=== PATIENT | female | born 1995 | race Caucasian/White ===

== ENCOUNTER 2021-04-09 03:23 | Inpatient (IN) | payer MEDICAID ==
[2021-04-09] MEDS ORDERED: Penicillin G Potassium 5 MILLUNITS in Sodium Chloride 0.9% 50 ML IV ONE (03:41)
[2021-04-09] MEDS ORDERED: Carboprost Tromethamine 250 MCG/1 ML Amp ONE (03:42)
[2021-04-09] MEDS ORDERED: Misoprostol 200 MCG Tab ONE (03:42)
[2021-04-09] MEDS ORDERED: Methylergonovine 0.2 MG/1 ML Amp ONE ×2 (03:42→06:33)
[2021-04-09] MEDS ORDERED: Glycopyrrolate 0.2 MG/ML 5 ML MDV ONE (04:19)
[2021-04-09] MEDS ORDERED: Propofol 200 MG/20 ML SDV ONE (04:19)
[2021-04-09] MEDS ORDERED: Dexamethasone 4 MG/ML SDV ONE (04:19)
[2021-04-09] MEDS ORDERED: Rocuronium 50 MG/5 ML Vial ONE (04:19)
[2021-04-09] MEDS ORDERED: Neostigmine Methylsulfate 1 MG/ML 5 ML Syringe ONE (04:19)
[2021-04-09] MEDS ORDERED: Succinylcholine 200 MG/10 ML MDV ONE (04:19)
[2021-04-09] MEDS ORDERED: Ondansetron 4 MG/2 ML SDV ONE (04:19)
[2021-04-09] MEDS ORDERED: Oxytocin 10 Units/1 ML SDV ONE (04:20)
[2021-04-09] MEDS ORDERED: fentaNYL 250 MCG/5 ML SDV ONE (04:20)
[2021-04-09] MEDS ORDERED: Midazolam 1 MG/ML 2 ML SDV ONE (04:36)
[2021-04-09] MEDS ORDERED: fentaNYL 100 MCG/2 ML SDV ONE ×2 (04:42→05:13)
[2021-04-09] MEDS ORDERED: Bupivacaine 0.5% 50 ML MDV ONE (05:05)
[2021-04-09] MEDS ORDERED: Lidocaine 1% with EPINEPHrine 1:100,000 50 ML MDV ONE (05:06)
[2021-04-09] MEDS ORDERED: hydrOXYzine HCL 100 MG/2 ML SDV IM ONE (05:11)
[2021-04-09] MEDS ORDERED: hydrOXYzine HCL 100 MG/2 ML SDV ONE (05:15)
[2021-04-09] MEDS ORDERED: diphenhydrAMINE 50 MG/ML SDV IVPUSH PRN (05:16)
[2021-04-09] MEDS ORDERED: fentaNYL 100 MCG/2 ML SDV IVPUSH PRN (05:16)
[2021-04-09] MEDS ORDERED: Ondansetron 4 MG Tab.DIS PO PRN (05:16)
[2021-04-09] MEDS ORDERED: Benzocaine 20% Top Spray 56 GM Bottle TOP ONE (05:16)
[2021-04-09] MEDS ORDERED: ePHEDrine 50 MG/ML SDV IVPUSH PRN (05:16)
[2021-04-09] MEDS ORDERED: Witch Hazel Medicated Pads 100/Jar TOP ONE (05:16)
[2021-04-09] MEDS ORDERED: Simethicone 80 MG Tab.Chew PO PRN (05:16)
[2021-04-09] MEDS ORDERED: Bisacodyl 10 MG Supp RECTAL PRN (05:16)
[2021-04-09] MEDS ORDERED: Lanolin 100% Cream 40 GM Tube TOP ONE (05:16)
[2021-04-09] MEDS ORDERED: Naloxone 0.4 MG/ML SDV IVPUSH PRN (05:16)
[2021-04-09] MEDS ORDERED: Sodium Chloride 0.9% 10 ML Syringe FLUSH PRN (05:17)
--- NOTE | 2021-04-09 05:27 | CRLCR ---
For Patients: As a result of the Cures Act, medical imaging exams and procedure reports are released immediately into your electronic medical record. You may view this report before your referring provider. If you have questions, please contact your health care provider. HISTORY: Instrument count. Emergency Caesarean section. COMPARISON: None available. FINDINGS: A single AP portable supine view of the abdomen was obtained at 0505 hours. There is no sign of any radiopaque foreign body in the abdomen or pelvis to suggest a retained surgical instrument or item. The bowel gas pattern is unremarkable with nothing seen to suggest obstruction or ileus. There is no sign of dilatation of the small bowel or colon. There is no free air. Soft tissue planes are preserved and there is no sign of a mass. No calcifications of concern are identified. The osseous structures are normal in appearance for the patient`s age. The lung bases are not included on today`s study. IMPRESSION: No sign of any retained surgical instrument or item. No sign bowel obstruction or ileus. Dictated by Dominic Piña MD @ 04/09/2021 5:26:56 AM (Electronically Signed)
[2021-04-09] MEDS ORDERED: Methylergonovine 0.2 MG/1 ML Amp IM ONE (05:52)
[2021-04-09] MEDS: Ibuprofen 800 MG Tab PO PRN ×2 (06:36→14:48)
--- NOTE | 2021-04-09 07:46 | OR ---
DATE OF PROCEDURE: 04/09/2021 SURGEON: Abdi Yoder MD PROCEDURE: section with aftercare. PREOPERATIVE DIAGNOSIS: Failure to advance with vaginal delivery. POSTOPERATIVE DIAGNOSIS: Failure to advance with vaginal delivery. PIPE FITTER MARINE: Gosia Jacobson CNM. COMPLICATION: None. ANESTHETIC: General. RISKS: Risks, benefits, alternatives, and limitations including, but not limited to infection; bleeding; injury to baby, bladder, bowel loops; chronic wounds; chronic pain; and other chronic issues were all explained to the patient, and she wished to proceed. PROCEDURE IN DETAIL: The patient was placed in supine position. Due to this being a stat procedure, the patient was rapidly prepped and draped, although consent was obtained prior to general anesthetic. A Pfannenstiel-type incision was performed. This was carried down rapidly with electrocautery to and through the external oblique. Metzenbaum scissors was carefully used to open the abdomen. No evidence of enterotomy or injury was noted. A rectus-sparing maneuver was then used. The bladder was identified and was deflected inferiorly and protected with a bladder blade. The uterus was then opened bluntly. The baby was delivered with mild difficulty. The cord was clamped and cut. The uterus was delivered extracorporeally. The placenta was delivered without difficulty. No evidence of retained placental products was noted. The uterus was then closed in three layers with #1 Vicryl suture in a running locked fashion. Irrigation was used to remove clots from the abdomen. The rectus sheath was then closed with #1 Vicryl in an interrupted running fashion. The external oblique aponeurosis was then closed with #1 Vicryl in a running suture x2. Subcutaneous tissues were irrigated and closed with 3-0 Vicryl and 0 Vicryl. was closed with 4-0 Vicryl and Dermabond was applied. Of note, local anesthetic was also used at the end of the procedure. Also of note, abdominal x-rays were performed and sent to Radiology for evaluation of retained surgical devices and materials. The patient tolerated the procedure well. Abdi Yoder MD /[id number]
[2021-04-09] MEDS: Prenatal Multivitamin with Calcium/Folic Acid/Iron Tab PO SCH (10:32)
[2021-04-09] MEDS: NS + KCl 20mEq/L 1,000 ML IV SCH ×2 (11:21→21:11)
[2021-04-09] MEDS: Acetaminophen/oxyCODONE 325-5 MG Tab PO PRN (11:22)
--- NOTE | 2021-04-09 16:19 | PCM.LDHP ---
L&D History of Present Illness - General Date of Service: 04/09/21 Admit Problem/Dx: Patient Status Order with Admit Dx/Problem 04/09/21 05:16 Patient Status [ADT] Routine 04/09/21 05:18 Patient Status [ADT] Routine Admission Diagnosis/Problem Admission Diagnosis/Problem - History of Present Illness Pain Score: 7 - Related Data Allergies/Adverse Reactions: Allergies Allergy/AdvReac Type Severity Reaction Status Date / Time No Known Allergies Allergy Verified 04/09/21 08:18 Past Medical History - Past Health History Medical/Surgical History: Denies Medical/Surgical History Social & Family History - Family History Family Medical History: Unobtainable - Tobacco Use Tobacco Use Status *Q: Current Every Day Tobacco User Years of Tobacco use: 5 Packs/Tins Daily: 0.5 - Caffeine Use Caffeine Use: Reports: None - Recreational Drug Use Recreational Drug Use: No Other Recreational Drug Type: patient denied, see UDS H&P Review of Systems - Review of Systems: Review Of Systems: See Below General: Reports: No Symptoms HEENT: Reports: No Symptoms Pulmonary: Reports: No Symptoms Cardiovascular: Reports: No Symptoms Gastrointestinal: Reports: No Symptoms Genitourinary: Reports: No Symptoms Musculoskeletal: Reports: No Symptoms Skin: Reports: No Symptoms Psychiatric: Reports: No Symptoms Neurological: Reports: No Symptoms Hematologic/Lymphatic: Reports: No Symptoms Immunologic: Reports: No Symptoms L&D Exam - Exam Exam: See Below - Vital Signs Vital Signs: Last Vital Signs Temp 36.8 C 04/09/21 14:40 Pulse 84 04/09/21 14:40 Resp 18 04/09/21 14:40 BP 123/69 04/09/21 14:40 Pulse Ox 96 04/09/21 14:40 - OB Specific Contraction Duration (sec): 40-60 Contraction Frequency (min): 2-3 Contraction Intensity: Strong Movement: Active Heart Tones: Present Heart Rate (FHR) Variability: Moderate (6-25 bpm) Presentation: Vertex - Bear Score Bear Score Cervix Position: Anterior Bear Score Consistency: Soft Bear Score Effacement: >80% Bear Score Dilation: > 5 cm Bear Score 's Station: +1, +2 Bear Score Total: 13 - Exam General: Alert, Oriented HEENT: PERRLA, Conjunctiva Clear, EACs Clear, EOMI, Hearing Intact, Mucosa Moist & [place], Nares Patent, Normal Nasal Septum, Posterior Pharynx Clear, TMs Clear Neck: Supple, Trachea Midline Lungs: Clear to Auscultation, Normal Respiratory Effort Cardiovascular: Regular Rate, Regular Rhythm GI/Abdominal Exam: Normal Bowel Sounds, Soft, Non-Tender, No Organomegaly, No Distention, No Abnormal Bruit, No Mass, Pelvis Stable Rectal Exam: Normal Exam, Normal Rectal Tone Genitourinary: Normal external exam, Normal bimanual exam Back Exam: Normal Inspection, Full Range of Motion Extremities: Normal Inspection, Normal Range of Motion, Non-Tender, No Pedal Edema, Normal Capillary Refill Skin: Warm, Dry, Intact Neurological: Cranial Nerves Intact, Reflexes Equal Bilateral Psychiatric: Alert, Normal Affect, Normal Mood - Patient Data Lab Results Last 24 hrs: Laboratory Results - last 24 hr 04/09/21 04/09/21 04/09/21 Range/Units 03:41 03:41 03:41 WBC 15.5 H (4.5-11.0) K/uL RBC 3.99 (3.30-5.50) M/uL Hgb 11.2 L (12.0-15.0) g/dL Hct 33.9 L (36.0-48.0) % MCV 85 (80-98) fL MCH 28 (27-31) pg MCHC 33 (32-36) % Plt Count 441 H (150-400) K/uL Neut % (Auto) 78.5 H (36-66) % Lymph % (Auto) 14.0 L (24-44) % [place] % (Auto) 6.7 H (2-6) % Eos % (Auto) 0.4 L (2-4) % Baso % (Auto) 0.4 (0-1) % Sodium 135 L (140-148) mmol/L Potassium 3.3 L (3.6-5.2) mmol/L Chloride 101 (100-108) mmol/L Carbon Dioxide 24 (21-32) mmol/L Anion Gap 13.3 (5.0-14.0) mmol/L BUN 6 L (7-18) mg/dL Creatinine 0.5 L (0.6-1.0) mg/dL Est Cr Clr Drug Dosing TNP Estimated GFR (MDRD) > 60 (>60) Glucose 168 H (74-106) mg/dL Calcium 8.5 (8.5-10.1) mg/dL Total Bilirubin 0.1 L (0.2-1.0) mg/dL AST 11 L (15-37) U/L ALT 10 L (12-78) U/L Alkaline Phosphatase 111 (46-116) U/L Total Protein 6.0 L (6.4-8.2) g/dL Albumin 1.7 L (3.4-5.0) g/dL Globulin 4.3 H (2.3-3.5) g/dL Albumin/Globulin Ratio 0.4 L (1.2-2.2) Urine Color (YELLOW) Urine Appearance (CLEAR) Urine pH (5.0-8.0) Ur Specific [place] (1.008-1.030) Urine Protein (NEGATIVE) mg/dL Urine Glucose (UA) (NEGATIVE) mg/dL Urine Ketones (NEGATIVE) mg/dL Urine Occult Blood (NEGATIVE) Urine Nitrite (NEGATIVE) Urine Bilirubin (NEGATIVE) Urine Urobilinogen (0.2-1.0) EU/dL Ur Leukocyte Esterase (NEGATIVE) Urine RBC (0-5) Urine WBC (0-5) Ur Epithelial Cells Amorphous Sediment Urine Bacteria Urine Mucus Urine Opiates Screen (NEGATIVE) Ur Oxycodone Screen (NEGATIVE) Urine Methadone Screen (NEGATIVE) Ur Propoxyphene Screen (NEGATIVE) Ur Barbiturates Screen (NEGATIVE) Ur Tricyclics Screen (NEGATIVE) Ur Phencyclidine Scrn (NEGATIVE) Ur Amphetamine Screen (NEGATIVE) U Methamphetamines Scrn (NEGATIVE) Urine MDMA Screen (NEGATIVE) U Benzodiazepines Scrn (NEGATIVE) U Cocaine Metab Screen (NEGATIVE) U Marijuana (THC) Screen (NEGATIVE) HIV-1 Ab Rapid Screen (NON-REACT.) SARS CoV-2 RNA Rapid CHECO Blood Type A POSITIVE Gel Antibody Screen Negative 04/09/21 04/09/21 04/09/21 Range/Units 03:49 04:41 04:41 WBC (4.5-11.0) K/uL RBC (3.30-5.50) M/uL Hgb (12.0-15.0) g/dL Hct (36.0-48.0) % MCV (80-98) fL MCH (27-31) pg MCHC (32-36) % Plt Count (150-400) K/uL Neut % (Auto) (36-66) % Lymph % (Auto) (24-44) % [place] % (Auto) (2-6) % Eos % (Auto) (2-4) % Baso % (Auto) (0-1) % Sodium (140-148) mmol/L Potassium (3.6-5.2) mmol/L Chloride (100-108) mmol/L Carbon Dioxide (21-32) mmol/L Anion Gap (5.0-14.0) mmol/L BUN (7-18) mg/dL Creatinine (0.6-1.0) mg/dL Est Cr Clr Drug Dosing Estimated GFR (MDRD) (>60) Glucose (74-106) mg/dL Calcium (8.5-10.1) mg/dL Total Bilirubin (0.2-1.0) mg/dL AST (15-37) U/L ALT (12-78) U/L Alkaline Phosphatase (46-116) U/L Total Protein (6.4-8.2) g/dL Albumin (3.4-5.0) g/dL Globulin (2.3-3.5) g/dL Albumin/Globulin Ratio (1.2-2.2) Urine Color Yellow (YELLOW) Urine Appearance Slightly cloudy A (CLEAR) Urine pH 6.0 (5.0-8.0) Ur Specific [place] 1.025 (1.008-1.030) Urine Protein Negative (NEGATIVE) mg/dL Urine Glucose (UA) 100 H (NEGATIVE) mg/dL Urine Ketones Negative (NEGATIVE) mg/dL Urine Occult Blood Trace-intact H (NEGATIVE) Urine Nitrite Negative (NEGATIVE) Urine Bilirubin Negative (NEGATIVE) Urine Urobilinogen 1.0 (0.2-1.0) EU/dL Ur Leukocyte Esterase Trace H (NEGATIVE) Urine RBC 5-10 H (0-5) Urine WBC 10-20 H (0-5) Ur Epithelial Cells Moderate Amorphous Sediment Not seen Urine Bacteria Few Urine Mucus Moderate Urine Opiates Screen Negative (NEGATIVE) Ur Oxycodone Screen Negative (NEGATIVE) Urine Methadone Screen Negative (NEGATIVE) Ur Propoxyphene Screen Negative (NEGATIVE) Ur Barbiturates Screen Negative (NEGATIVE) Ur Tricyclics Screen Negative (NEGATIVE) Ur Phencyclidine Scrn Negative (NEGATIVE) Ur Amphetamine Screen Presumptive positive H (NEGATIVE) U Methamphetamines Scrn Presumptive positive H (NEGATIVE) Urine MDMA Screen Negative (NEGATIVE) U Benzodiazepines Scrn Negative (NEGATIVE) U Cocaine Metab Screen Negative (NEGATIVE) U Marijuana (THC) Screen Negative (NEGATIVE) HIV-1 Ab Rapid Screen (NON-REACT.) SARS CoV-2 RNA Rapid CHECO Negative Blood Type Gel Antibody Screen 04/09/21 Range/Units 10:11 WBC (4.5-11.0) K/uL RBC (3.30-5.50) M/uL Hgb (12.0-15.0) g/dL Hct (36.0-48.0) % MCV (80-98) fL MCH (27-31) pg MCHC (32-36) % Plt Count (150-400) K/uL Neut % (Auto) (36-66) % Lymph % (Auto) (24-44) % [place] % (Auto) (2-6) % Eos % (Auto) (2-4) % Baso % (Auto) (0-1) % Sodium (140-148) mmol/L Potassium (3.6-5.2) mmol/L Chloride (100-108) mmol/L Carbon Dioxide (21-32) mmol/L Anion Gap (5.0-14.0) mmol/L BUN (7-18) mg/dL Creatinine (0.6-1.0) mg/dL Est Cr Clr Drug Dosing Estimated GFR (MDRD) (>60) Glucose (74-106) mg/dL Calcium (8.5-10.1) mg/dL Total Bilirubin (0.2-1.0) mg/dL AST (15-37) U/L ALT (12-78) U/L Alkaline Phosphatase (46-116) U/L Total Protein (6.4-8.2) g/dL Albumin (3.4-5.0) g/dL Globulin (2.3-3.5) g/dL Albumin/Globulin Ratio (1.2-2.2) Urine Color (YELLOW) Urine Appearance (CLEAR) Urine pH (5.0-8.0) Ur Specific [place] (1.008-1.030) Urine Protein (NEGATIVE) mg/dL Urine Glucose (UA) (NEGATIVE) mg/dL Urine Ketones (NEGATIVE) mg/dL Urine Occult Blood (NEGATIVE) Urine Nitrite (NEGATIVE) Urine Bilirubin (NEGATIVE) Urine Urobilinogen (0.2-1.0) EU/dL Ur Leukocyte Esterase (NEGATIVE) Urine RBC (0-5) Urine WBC (0-5) Ur Epithelial Cells Amorphous Sediment Urine Bacteria Urine Mucus Urine Opiates Screen (NEGATIVE) Ur Oxycodone Screen (NEGATIVE) Urine Methadone Screen (NEGATIVE) Ur Propoxyphene Screen (NEGATIVE) Ur Barbiturates Screen (NEGATIVE) Ur Tricyclics Screen (NEGATIVE) Ur Phencyclidine Scrn (NEGATIVE) Ur Amphetamine Screen (NEGATIVE) U Methamphetamines Scrn (NEGATIVE) Urine MDMA Screen (NEGATIVE) U Benzodiazepines Scrn (NEGATIVE) U Cocaine Metab Screen (NEGATIVE) U Marijuana (THC) Screen (NEGATIVE) HIV-1 Ab Rapid Screen Non-reactive (NON-REACT.) SARS CoV-2 RNA Rapid CHECO Blood Type Gel Antibody Screen Result Diagrams: 04/09/21 03:41 04/09/21 03:41 - Problem List (1) SNOMED Code(s): 09544134 ICD Code: Z34.90 - ENCNTR FOR SUPRVSN OF NORMAL , UNSP, UNSP TRIMESTER Status: Acute Current Visit: Yes Qualifiers: Weeks of gestation: unspecified Qualified Code(s): Z34.90 - Encounter for supervision of normal , unspecified, unspecified trimester (2) Insufficient care in third trimester SNOMED Code(s): 8293242873127, 1269489064729 ICD Code: O09.33 - SUPRVSN OF PREG W INSUFFICIENT ANTENAT CARE, THIRD TRIMESTER Status: Acute Current Visit: Yes (3) Drug abuse during SNOMED Code(s): 55181963 ICD Code: O99.320 - DRUG USE COMPLICATING , UNSPECIFIED TRIMESTER; F19.10 - OTHER PSYCHOACTIVE SUBSTANCE ABUSE, UNCOMPLICATED Status: Acute Current Visit: Yes (4) Tobacco abuse SNOMED Code(s): 412939299 ICD Code: Z72.0 - TOBACCO USE Status: Acute Current Visit: Yes (5) Labor established SNOMED Code(s): 77626983 ICD Code: TXX9882 - Status: Acute Current Visit: Yes (6) Prolonged artificial rupture of membranes SNOMED Code(s): 929006634, 608522908 ICD Code: O75.5 - DELAYED DELIVERY AFTER ARTIFICIAL RUPTURE OF MEMBRANES Status: Acute Current Visit: Yes (7) Noncompliance SNOMED Code(s): 0816752 ICD Code: Z91.19 - PATIENT'S NONCOMPLIANCE W OTH MEDICAL TREATMENT AND REGIMEN Status: Acute Current Visit: Yes Problem List Initiated/Reviewed/Updated: Yes Orders Last 24hrs: Active Orders 24 hr Category Date Time Status Patient Status [ADT] Routine ADT 04/09/21 05:16 Active Patient Status [ADT] Routine ADT 04/09/21 05:18 Active Ambulate [RC] ASDIRECTED Care 04/09/21 05:16 Active Antiembolic Devices [RC] .Routine Care 04/09/21 05:17 Active Communication Order [RC] ASDIRECTED Care 04/09/21 05:18 Active Communication Order [RC] Per Unit Routine Care 04/09/21 05:16 Active Communication Order [RC] Per Unit Routine Care 04/09/21 05:16 Active Communication Order [RC] Per Unit Routine Care 04/09/21 05:16 Active Head of Bed Elevation [RC] CONTINUOUS Care 04/09/21 05:16 Active Notify Provider Vital Signs [RC] PRN Care 04/09/21 05:17 Active Notify Provider [RC] PRN Care 04/09/21 05:18 Active Pneumonia Education [RC] UPON Care 04/09/21 05:16 Active Turn, Cough, Deep Breathe [RC] Q1HWA Care 04/09/21 05:16 Active Up ad Jackie [RC] ASDIRECTED Care 04/09/21 05:17 Active Up to Chair [RC] TIDMEALS Care 04/09/21 05:16 Active Urinary Catheter Removal [RC] Per Unit Routine Care 04/09/21 05:16 Active VTE/DVT Education [RC] Click to Edit Care 04/09/21 05:17 Active Vital Signs [RC] PER UNIT ROUTINE Care 04/09/21 05:16 Active Consult to Case Management/Diet Therapist [CONS] Cons 04/09/21 05:17 Active Routine Consult to Cytogeneticist [CONS] Routine Cons 04/09/21 05:16 Active Respiratory Care Assess and Treatment [CONS] Routine Cons 04/09/21 05:16 Active Regular Diet [DIET] Diet 04/09/21 Lunch Active BASIC METABOLIC PANEL,BMP [CHEM] AM Lab 04/10/21 05:11 Ordered CBC WITH AUTO DIFF [HEME] AM Lab 04/10/21 05:11 Ordered HBSAG SCREEN Urgent Lab 04/09/21 10:11 Received HCV ANTIBODY Urgent Lab 04/09/21 10:11 Received PATIENT RETYPE [BBK] Routine Lab 04/09/21 03:41 Results RUBELLA ANTIBODIES, IGG Urgent Lab 04/09/21 10:11 Received T PALLIDUM SCREENING CASCADE Urgent Lab 04/09/21 10:11 Received TYPE AND SCREEN [BBK] Routine Lab 04/09/21 03:41 Results Acetaminophen/oxyCODONE [Percocet 325-5 MG] Med 04/09/21 05:16 Active 2 tab PO Q4H PRN Ibuprofen [Motrin] Med 04/09/21 05:16 Active 800 mg PO Q8H PRN NS + KCl 20mEq/L [Normal Saline with 20 mEq KCl] 1,000 Med 04/09/21 08:00 Ac tive ml IV ASDIRECTED Naloxone [Narcan] Med 04/09/21 05:16 Active 0.1 mg IVPUSH ASDIRECTED PRN Ondansetron [Zofran ODT] Med 04/09/21 05:16 Active 8 mg PO Q6H PRN Vit with Ca/FA/Iron [ Plus Iron] Med 04/09/21 09:00 Active 1 each PO DAILY Simethicone Med 04/09/21 05:16 Active 80 mg PO Q4H PRN Sodium Chloride 0.9% [Saline Flush] Med 04/09/21 05:17 Active 10 ml FLUSH ASDIRECTED PRN bisacodyL [Dulcolax] Med 04/09/21 05:16 Active 10 mg RECTAL BID PRN diphenhydrAMINE [Benadryl] Med 04/09/21 05:16 Active 25 mg IVPUSH Q6H PRN ePHEDrine [ePHEDrine sulfate] Med 04/09/21 05:16 Active 5 mg IVPUSH ASDIRECTED PRN fentaNYL [Sublimaze] Med 04/09/21 05:16 Active 10 mcg IVPUSH Q2H PRN Abdominal Binder [OM.PC] Per Unit Routine Oth 04/09/21 05:16 Ordered Breast Pump [WOMSER] Per Unit Routine Oth 04/09/21 05:16 Ordered DVT/VTE Prophylaxis Reflex [OM.PC] Routine Oth 04/09/21 05:16 Ordered Heat Therapy [OM.PC] Per Unit Routine Oth 04/09/21 05:16 Ordered Ice Therapy [OM.PC] Per Unit Routine Oth 04/09/21 05:16 Ordered Oral Care [OM.PC] BID Oth 04/09/21 05:30 Ordered Oral Care [OM.PC] BID Oth 04/10/21 05:30 Ordered Saline Lock Insert [OM.PC] Routine Oth 04/09/21 05:18 Ordered Resuscitation Status Routine Resus Stat 04/09/21 05:16 Ordered Medication Orders Bisacodyl (Bisacodyl 10 Mg Supp) 10 mg RECTAL BID PRN PRN Reason: Constipation Diphenhydramine HCl (Diphenhydramine 50 Mg/Ml Sdv) 25 mg IVPUSH Q6H PRN PRN Reason: Itching or Nausea Ephedrine Sulfate (Ephedrine 50 Mg/Ml Sdv) 5 mg IVPUSH ASDIRECTED PRN PRN Reason: Other Fentanyl (Fentanyl 100 Mcg/2 Ml Sdv) 10 mcg IVPUSH Q2H PRN PRN Reason: Pain (severe 7-10) Potassium Chloride/Sodium Chloride (Normal Saline With 20 Meq Kcl) 1,000 mls @ 100 mls/hr IV ASDIRECTED ROO[place]ELT Last Admin: 04/09/21 11:21 Dose: 100 mls/hr Documented by: FIDELINA Ibuprofen (Ibuprofen 800 Mg Tab) 800 mg PO Q8H PRN PRN Reason: mild pain or fever Last Admin: 04/09/21 14:48 Dose: 800 mg Documented by: Admin: 04/09/21 06:36 Dose: 800 mg Documented by: TESS Naloxone HCl (Naloxone 0.4 Mg/Ml Sdv) 0.1 mg IVPUSH ASDIRECTED PRN PRN Reason: Respiratory Depression Ondansetron HCl (Ondansetron 4 Mg Tab.Dis) 8 mg PO Q6H PRN PRN Reason: Nausea/Vomiting Oxycodone/Acetaminophen (Acetaminophen/Oxycodone 325-5 Mg Tab) 2 tab PO Q4H PRN PRN Reason: Pain (moderate 4-6) Last Admin: 04/09/21 11:22 Dose: 2 tab Documented by: FIDELINA Prenat Multivit/[place]/Iron/Folic Ac ( Multivitamin With Calcium/Folic Acid/Iron Tab) 1 each PO DAILY R[place]T Last Admin: 04/09/21 10:32 Dose: 1 each Documented by: FIDELINA Simethicone (Simethicone 80 Mg Tab.Chew) 80 mg PO Q4H PRN PRN Reason: Gas Sodium Chloride (Sodium Chloride 0.9% 10 Ml Syringe) 10 ml FLUSH ASDIRECTED PRN PRN Reason: Keep Vein Open Assessment/Plan Comment:: 04/09/2021 25 yo came via ambulance at a suspected 37 weeks gestation in active labor. Her significant other states that labor started at 0130 and got intense so they call an ambulance. On admission ER doctor thought that she was complete and plus two station. FHTs category one and patient very hard to get information from. Patient denied drug use, patient states they were here visiting when she went into labor they planned on delivering with a department mgr where they live. CNM arrived and found patient to have a very swollen anterior lip and gio roximately still 9cm. She was still trying to push. We educated her and attempted to put her in some positions to help with swelling of cervix. Patient was not compliant and refused to stay in positions. Then during discussion it then came to light that she had limited care, that they new the sex of the baby through ultrasounds. Then father of child stated she had been laboring at home and pushing for two hours before they called the ambulance. After trying multiple items decision was made to proceed with a stat primary section due to failure to progress. OR crew was notified. Patient agreed with plan of care. UDS was positive for methamphetamines. We brought patient down to OR on labor bed, FHTs remained a category one, mother then had general anesthesia. Infant was delivered quickly and placed on blanket, bulb suction done, fluid was clear, Infant began to attempt to cry, cord double clamped and cut, brought to warmer, still slightly affected by general anesthesia. dried, stimulated, warmed, delee deep suction done for return of 10ml of clear fluid, then CPAP done for 3 minutes then began to cry more vigorously, pink in color and have better tone. Mother had general anesthesia so was wrapped in prewarmed blanket, hat placed on head and brought up stairs for further evaluation. APGARS-5/9/9, weight-5lbs 9oz, le ngth-18 inches. When we brought up to nursery the father of was asleep in patients room and was hard to arouse. Once he was awakened he did come to nursery and was appropriate
[2021-04-10] MEDS: Ibuprofen 800 MG Tab PO PRN (04:46)
[2021-04-10] MEDS: Acetaminophen/oxyCODONE 325-5 MG Tab PO PRN (07:41)
[2021-04-10] MEDS: Prenatal Multivitamin with Calcium/Folic Acid/Iron Tab PO SCH ×2 (07:47→09:29)
[2021-04-10] MEDS ORDERED: Ondansetron 4 MG/2 ML SDV IVPUSH PRN (08:11)
[2021-04-10 08:13] LABS: HBSAG SCREEN Negative (Negative)
--- NOTE | 2021-04-10 09:15 | PCM.PNPP ---
- General Info Date of Service: 04/09/21 - Patient Data Vital Signs - Most Recent: Last Vital Signs Temp 36.8 C 04/10/21 07:36 Pulse 88 04/10/21 07:36 Resp 14 04/10/21 07:36 BP 125/80 04/10/21 07:36 Pulse Ox 97 04/10/21 07:36 I&O - Last 24 Hours: Intake & Output 04/09/21 04/10/21 04/10/21 22:59 06:59 14:59 Intake Total 3637 Output Total 175 1750 Balance -175 1887 Lab Results - Last 24 Hours: Laboratory Results - last 24 hr 04/09/21 04/09/21 04/10/21 Range/Units 10: 10: 04:45 WBC 17.5 H (4.5-11.0) K/uL RBC 3.38 (3.30-5.50) M/uL Hgb 9.4 L (12.0-15.0) g/dL Hct 29.1 L (36.0-48.0) % MCV 86 (80-98) fL MCH 28 (27-31) pg MCHC 32 (32-36) % Plt Count 476 H (150-400) K/uL Neut % (Auto) 77.5 H (36-66) % Lymph % (Auto) 15.0 L (24-44) % [place] % (Auto) 7.1 H (2-6) % Eos % (Auto) 0.3 L (2-4) % Baso % (Auto) 0.1 (0-1) % Sodium (140-148) mmol/L Potassium (3.6-5.2) mmol/L Chloride (100-108) mmol/L Carbon Dioxide (21-32) mmol/L Anion Gap (5.0-14.0) mmol/L BUN (7-18) mg/dL Creatinine (0.6-1.0) mg/dL Est Cr Clr Drug Dosing Estimated GFR (MDRD) (>60) Glucose (74-106) mg/dL Calcium (8.5-10.1) mg/dL Hep Bs Antigen Negative (Negative) HIV-1 Ab Rapid Screen Non-reactive (NON-REACT.) 04/10/21 Range/Units 04:45 WBC (4.5-11.0) K/uL RBC (3.30-5.50) M/uL Hgb (12.0-15.0) g/dL Hct (36.0-48.0) % MCV (80-98) fL MCH (27-31) pg MCHC (32-36) % Plt Count (150-400) K/uL Neut % (Auto) (36-66) % Lymph % (Auto) (24-44) % [place] % (Auto) (2-6) % Eos % (Auto) (2-4) % Baso % (Auto) (0-1) % Sodium 141 (140-148) mmol/L Potassium 4.2 (3.6-5.2) mmol/L Chloride 107 (100-108) mmol/L Carbon Dioxide 27 (21-32) mmol/L Anion Gap 7.3 (5.0-14.0) mmol/L BUN 4 L (7-18) mg/dL Creatinine 0.4 L (0.6-1.0) mg/dL Est Cr Clr Drug Dosing TNP Estimated GFR (MDRD) > 60 (>60) Glucose 71 L (74-106) mg/dL Calcium 7.9 L (8.5-10.1) mg/dL Hep Bs Antigen (Negative) HIV-1 Ab Rapid Screen (NON-REACT.) Med Orders - Current: Current Medications Bisacodyl (Bisacodyl 10 Mg Supp) 10 mg RECTAL BID PRN PRN Reason: Constipation Diphenhydramine HCl (Diphenhydramine 50 Mg/Ml Sdv) 25 mg IVPUSH Q6H PRN PRN Reason: Itching or Nausea Ephedrine Sulfate (Ephedrine 50 Mg/Ml Sdv) 5 mg IVPUSH ASDIRECTED PRN PRN Reason: Other Fentanyl (Fentanyl 100 Mcg/2 Ml Sdv) 10 mcg IVPUSH Q2H PRN PRN Reason: Pain (severe 7-10) Potassium Chloride/Sodium Chloride (Normal Saline With 20 Meq Kcl) 1,000 mls @ 100 mls/hr IV ASDIRECTED [place] Last Admin: 04/09/21 21:11 Dose: 100 mls/hr Documented by: Ibuprofen (Ibuprofen 800 Mg Tab) 800 mg PO Q8H PRN PRN Reason: mild pain or fever Last Admin: 04/10/21 04:46 Dose: 800 mg Documented by: Naloxone HCl (Naloxone 0.4 Mg/Ml Sdv) 0.1 mg IVPUSH ASDIRECTED PRN PRN Reason: Respiratory Depression Ondansetron HCl (Ondansetron 4 Mg Tab.Dis) 8 mg PO Q6H PRN PRN Reason: Nausea/Vomiting Ondansetron HCl (Ondansetron 4 Mg/2 Ml Sdv) 4 mg IVPUSH Q6H PRN PRN Reason: Nausea/Vomiting Oxycodone/Acetaminophen (Acetaminophen/Oxycodone 325-5 Mg Tab) 2 tab PO Q4H PRN PRN Reason: Pain (moderate 4-6) Last Admin: 04/10/21 07:41 Dose: 2 tab Documented by: Prenat Multivit/[place]/Iron/Folic Ac ( Multivitamin With Calcium/Folic Acid/Iron Tab) 1 each PO DAILY [place] Last Admin: 04/10/21 07:47 Dose: 1 each Documented by: Simethicone (Simethicone 80 Mg Tab.Chew) 80 mg PO Q4H PRN PRN Reason: Gas Sodium Chloride (Sodium Chloride 0.9% 10 Ml Syringe) 10 ml FLUSH ASDIRECTED PRN PRN Reason: Keep Vein Open Discontinued Medications Benzocaine (Benzocaine 20% Top [place] 56 Gm Bottle) 0 gm TOP Q4H ONE Stop: 04/09/21 05:17 Last Admin: 04/09/21 07:18 Dose: 1 spray Documented by: Bupivacaine HCl (Bupivacaine 0.5% 50 Ml Mdv) Confirm Administered Dose 50 ml .ROUTE .STK-MED ONE Stop: 04/09/21 05:06 Last Admin: 04/09/21 05:07 Dose: 10 ml Documented by: Carboprost Tromethamine (Carboprost Tromethamine 250 Mcg/1 Ml Amp) Confirm Administered Dose 250 mcg .ROUTE .STK-MED ONE Stop: 04/09/21 03:43 Last Admin: 04/09/21 07:59 Dose: Not Given Documented by: Dexamethasone (Dexamethasone 4 Mg/Ml Sdv) Confirm Administered Dose 4 mg .ROUTE .STK-MED ONE Stop: 04/09/21 04:20 Emollient Ointment (Lanolin 100% Cream 40 Gm Tube) 40 gm TOP ASDIRECTED ONE Stop: 04/09/21 05:17 Last Admin: 04/09/21 07:19 Dose: 1 applic Documented by: Fentanyl (Fentanyl 250 Mcg/5 Ml Sdv) Confirm Administered Dose 250 mcg .ROUTE .STK-MED ONE Stop: 04/09/21 04:21 Fentanyl (Fentanyl 100 Mcg/2 Ml Sdv) Confirm Administered Dose 100 mcg .ROUTE .STK-MED ONE Stop: 04/09/21 04:43 Fentanyl (Fentanyl 100 Mcg/2 Ml Sdv) Confirm Administered Dose 100 mcg .ROUTE .STK-MED ONE Stop: 04/09/21 05:14 Glycopyrrolate (Glycopyrrolate 0.2 Mg/Ml 5 Ml Mdv) Confirm Administered Dose 1 mg .ROUTE .STK-MED ONE Stop: 04/09/21 04:20 Hydroxyzine HCl (Hydroxyzine Hcl 100 Mg/2 Ml Sdv) 75 mg IM ONETIME ONE Stop: 04/09/21 05:12 Last Admin: 04/09/21 05:20 Dose: 75 mg Documented by: Hydroxyzine HCl (Hydroxyzine Hcl 100 Mg/2 Ml Sdv) Confirm Administered Dose 100 mg .ROUTE .STK-MED ONE Stop: 04/09/21 05:16 Last Admin: 04/09/21 07:59 Dose: Not Given Documented by: Oxytocin/Sodium Chloride (Pitocin In Ns 20 Units/1,000 Ml) Confirm Administered Dose 20 unit in 1,000 mls @ as directed .ROUTE .STK-MED ONE Stop: 04/09/21 03:32 Last Admin: 04/09/21 07:59 Dose: Not Given Documented by: Penicillin G Potassium 5 (millunits/ Sodium Chloride) 50 mls @ 100 mls/hr IV ONETIME ONE Stop: 04/09/21 04:10 Last Admin: 04/09/21 03:50 Dose: 100 mls/hr Documented by: Oxytocin/Sodium Chloride (Pitocin In Ns 20 Units/1,000 Ml) 20 unit in 1,000 mls @ 999 mls/hr IV ONETIME ONE; Protocol Stop: 04/09/21 06:55 Last Admin: 04/09/21 06:36 Dose: 999 mls/hr, 999 mls/hr Documented by: Lidocaine/Epinephrine (Lidocaine 1% With Epinephrine 1:100,000 50 Ml Mdv) Confirm Administered Dose 50 ml .ROUTE .STK-MED ONE Stop: 04/09/21 05:07 Last Admin: 04/09/21 05:07 Dose: 10 ml Documented by: Methylergonovine Maleate (Methylergonovine 0.2 Mg/1 Ml Amp) Confirm Administered Dose 0.2 mg .ROUTE .STK-MED ONE Stop: 04/09/21 03:43 Last Admin: 04/09/21 07:59 Dose: Not Given Documented by: Methylergonovine Maleate (Methylergonovine 0.2 Mg/1 Ml Amp) 0.2 mg IM ONETIME ONE Stop: 04/09/21 05:53 Last Admin: 04/09/21 06:30 Dose: 0.2 mg Documented by: Methylergonovine Maleate (Methylergonovine 0.2 Mg/1 Ml Amp) Confirm Administered Dose 0.2 mg .ROUTE .STK-MED ONE Stop: 04/09/21 06:34 Last Admin: 04/09/21 07:58 Dose: Not Given Documented by: Midazolam HCl (Midazolam 1 Mg/Ml 2 Ml Sdv) Confirm Administered Dose 2 mg .ROUTE .STK-MED ONE Stop: 04/09/21 04:37 Misoprostol (Misoprostol 200 Mcg Tab) Confirm Administered Dose 800 mcg .ROUTE .STK-MED ONE Stop: 04/09/21 03:43 Last Admin: 04/09/21 07:59 Dose: Not Given Documented by: Neostigmine Methylsulfate (Neostigmine Methylsulfate 1 Mg/Ml 5 Ml Syringe) Confirm Administered Dose 5 mg .ROUTE .STK-MED ONE Stop: 04/09/21 04:20 Ondansetron HCl (Ondansetron 4 Mg/2 Ml Sdv) Confirm Administered Dose 4 mg .ROUTE .STK-MED ONE Stop: 04/09/21 04:20 Oxytocin (Oxytocin 10 Units/1 Ml Sdv) Confirm Administered Dose 30 unit .ROUTE .STK-MED ONE Stop: 04/09/21 04:21 Last Admin: 04/09/21 04:42 Dose: 10 unit Documented by: Propofol (Propofol 200 Mg/20 Ml Sdv) Confirm Administered Dose 200 mg .ROUTE .STK-MED ONE Stop: 04/09/21 04:20 Rocuronium Ponder (Rocuronium 50 Mg/5 Ml Vial) Confirm Administered Dose 50 mg .ROUTE .STK-MED ONE Stop: 04/09/21 04:20 Succinylcholine Chloride (Succinylcholine 200 Mg/10 Ml Mdv) Confirm Administered Dose 200 mg .ROUTE .STK-MED ONE Stop: 04/09/21 04:20 [place] ([place] Medicated Pads 100/Jar) 1 pad TOP ASDIRECTED ONE Stop: 04/09/21 05:17 Last Admin: 04/09/21 07:19 Dose: 1 pad Documented by: - Interaction Support Person: Significant Other - Recovery Exam Fundal Tone: Firm Fundal Level: 1 Fingerbreadths Below Umbilicus Fundal Placement: Midline Lochia Amount: Small Lochia Color: Rubra/Red Perineum Description: Edematous Episiotomy/Laceration: None Bladder Status: Indwelling Catheter in Place Urinary Elimination: Indwelling Catheter - Problem List & Annotations (1) SNOMED Code(s): 81810036 Code(s): Z34.90 - ENCNTR FOR SUPRVSN OF NORMAL , UNSP, UNSP TRIMESTER Status: Acute Current Visit: Yes Qualifiers: Qualified Code(s): Z34.90 - Encounter for supervision of normal , unspecified, unspecified trimester (2) Insufficient care in third trimester SNOMED Code(s): 2842596339609, 2077198513813 Code(s): O09.33 - SUPRVSN OF PREG W INSUFFICIENT ANTENAT CARE, THIRD TRIMESTER Status: Acute Current Visit: Yes (3) Drug abuse during SNOMED Code(s): 63313960 Code(s): O99.320 - DRUG USE COMPLICATING , UNSPECIFIED TRIMESTER; F19.10 - OTHER PSYCHOACTIVE SUBSTANCE ABUSE, UNCOMPLICATED Status: Acute Current Visit: Yes (4) Tobacco abuse SNOMED Code(s): 266997224 Code(s): Z72.0 - TOBACCO USE Status: Acute Current Visit: Yes (5) Labor established SNOMED Code(s): 88153623 Code(s): PWJ5359 - Status: Acute Current Visit: Yes (6) Prolonged artificial rupture of membranes SNOMED Code(s): 966155469, 522463696 Code(s): O75.5 - DELAYED DELIVERY AFTER ARTIFICIAL RUPTURE OF MEMBRANES Status: Acute Current Visit: Yes (7) Noncompliance SNOMED Code(s): 8220145 Code(s): Z91.19 - PATIENT'S NONCOMPLIANCE W OTH MEDICAL TREATMENT AND REGIMEN Status: Acute Current Visit: Yes - Problem List Review Problem List Initiated/Reviewed/Updated: Yes - My Orders Last 24 Hours: My Active Orders 04/09/21 10:11 HCV ANTIBODY Urgent RUBELLA ANTIBODIES, IGG Urgent T PALLIDUM SCREENING CASCADE Urgent - Assessment Assessment:: 04/09/2021-1815 air defence officer Jimenez was here to place a hold on due to maternal drug use Father of became very angry. He states "we are stealing his child, she has never used drugs, we put drugs in her urine" He also states "he will not accept the papers, he will shove them up the social workers ass" he also stated multiple other vulgar statements to provider and security police officer. He then slammed door behind us. Officer Jimenez had to go to another call so he left the building. Provider was then at the nurses station. The father of infant again became very angered, came with the paper and started yelling profanities and states that we have no right to do a drug screen, that we are again stealing his baby, attempted to redirect him to another area and he states no he will do whatever he fucking wants. Then while redirecting provider states that she is happy to have the home health care social worker contact him to work with him. He then states he will kill the home health care social worker and provider if we try to take his baby" He then turns to walk away and states to himself I am going to get arrested if I stay here so I should leave. He then slammed doors and him and the mother exchanged more screaming before he left down the stairwell. Police officers were notified again and were looking for the father of . will now remain in nursery at all times. - Plan Plan:: 04/09/2021 25 yo came via ambulance at a suspected 37 weeks gestation in active labor. Her significant other states that labor started at 0130 and got intense so they call an ambulance. On admission ER doctor thought that she was complete and plus two station. FHTs category one and patient very hard to get information from. Patient denied drug use, patient states they were here visiting when she went into labor they planned on delivering with a chiropractor sole practitioner where they live. CNM arrived and found patient to have a very swollen anterior lip and approximately still 9cm. She was still trying to push. We educated her and attempted to put her in some positions to help with swelling of cervix. Patient was not compliant and refused to stay in positions. Then during discussion it then came to light that she had limited care, that they new the sex of the baby through ultrasounds. Then father of child stated she had been laboring at home and pushing for two hours before they called the ambulance. After trying multiple items decision was made to proceed with a stat primary section due to failure to progress. OR crew was notified. Patient agreed with plan of care. UDS was positive for methamphetamines. We brought patient down to OR on labor bed, FHTs remained a category one, mother then had general anesthesia. Infant was delivered quickly and placed on blanket, bulb suction done, fluid was clear, began to attempt to cry, cord double clamped and cut, infant brought to warmer, Infant still slightly affected by general anesthesia. Infant dried, stimulated, warmed, delee deep suction done for return of 10ml of clear fluid, then CPAP done for 3 minutes infant then began to cry more vigorously, pink in color and have better tone. Mother had general anesthesia so infant was wrapped in prewarmed blanket, hat placed on head and brought up stairs for further evaluation. APGARS-5/9/9, weight-5lbs 9oz, length-18 inches. When we brought up to nursery the father of was asleep in patients room and was hard to arouse. Once he was awakened he did come to nursery and was appropriate
--- NOTE | 2021-04-12 06:53 | PN ---
DATE OF SERVICE: 04/10/2021 SUBJECTIVE: The patient is doing well. Pain is well controlled. No nausea, vomiting, shortness of breath, or chest pain. OBJECTIVE: VITAL SIGNS: Stable. CARDIOVASCULAR: Regular rhythm and rate. RESPIRATORY: Lungs clear to auscultation bilaterally. SKIN: Incision healing well. ASSESSMENT: Status post . PLAN: The patient is doing quite well. She says her pain is controlled, but still having some pain issues. Therefore, we will keep her until she is ready for discharge this afternoon or until tomorrow. Aside from that, she is to continue her diet. She was saline locked. Her activity has increased. She may shower. Abdi Yoder MD /[id number]
[2021-04-12 21:11] LABS: T PALLIDUM ANTIBODIES Non Reactive (Non Reactive)
== END 2021-04-10 16:08 | disposition home or self-care (01) | DRG 787 ==
LOC: JP.OB 03:23 → OBSVTOIN 03:23 → JP.OB 03:37 → JP.MS 09:34
PROVIDERS: ADMIT Advanced Practice Midwife; ATTEND Advanced Practice Midwife
PROC: 10D00Z1 Extraction of Products of Conception, Low, Open Approach (ICD-10-PCS; principal; 2021-04-09)
DX: O42.92 Full-term premature rupture of membranes, unspecified as to length of time between rupture and onset of labor (principal); O99.324 Drug use complicating childbirth; O62.1 Secondary uterine inertia; F15.90 Other stimulant use, unspecified, uncomplicated; Z3A.37 37 weeks gestation of pregnancy; Z37.0 Single live birth; Z20.822 Contact with and (suspected) exposure to COVID-19
CPT/HCPCS: 36415; 74018; 80048; 80053; 80305-QW; 81001; 85025; 86762; 86780; 86803; 86850; 86900; 86901; 87340; 87449; 99211; A9270-GY; J0330; J1100; J2210; J2250; J2405; J2540; J2590; J2704; J2710; J3010; J3410; J3480; J3490; U0002